=== PATIENT | female | born 1960 | race Two or more races ===

== ENCOUNTER 2018-09-15 13:40 | Outpatient (CLI) | payer MEDICARE, OTHER ==
[~2018-09-15] VITALS: Ht 162.6 cm; Wt 66.7 kg
[2018-09-15] MEDS ORDERED: ZANTAC150 MG ORAL (14:43)
[2018-09-15] MEDS ORDERED: HYDRALAZINE HC100 MG ORAL (14:43)
[2018-09-15] MEDS ORDERED: MONTELUKAST SOD10 MG ORAL (14:43)
[2018-09-15] MEDS ORDERED: SIMVASTATIN10 MG ORAL (14:43)
[2018-09-15] MEDS ORDERED: ACICLOVIR PO (14:43)
[2018-09-15] MEDS ORDERED: NORMODYNE200 MG ORAL (14:43)
[2018-09-15] MEDS ORDERED: PROAIR HFA8.5 GM INH (14:43)
[2018-09-15] MEDS ORDERED: ZYRTEC10 MG ORAL (14:43)
--- NOTE | 2018-09-15 14:47 | GI Initial Consult Note ---
History of Present Illness General Date patient seen: Sep 15, 2018 Time patient seen: 14:47 Referring physician: Yin Reason for Consultation: Hematochezia Present Illness HPI 58-year-old female patient presents today with complaint of hematochezia accompanied with generalized abdominal pain, GERD, diarrhea and abdominal bloating. The patient had EGD performed back in 2015. Had her colonoscopy performed back in 2012, results are unknown at this time. Denies any unintentional weight loss or changes in dietary habits. No signs of abuse or neglect. Patient is not fall risk. Med list reviewed/reconciled: Yes Patient History History Provided By: Patient, Medical Record PM Narrative End-stage renal disease, dialysis Wednesday since 2015 Hypertension Cholesterol GERD Asthma Sleep apnea with use of CPAP Past surgical history Appendectomy Hysterectomy left breast biopsy, negative Pertinent Family History: none Social History: Reports: other - Use of caffeine; Denies: smoking, alcohol use , drug use Review of Systems All Other Systems: negative except mentioned in HPI Physical Exam Blood pressure 150/84 Heart rate 76 95% room air Height 5 feet 4 inches Weight 147 pounds Sp02 EP Interpretation: reviewed, normal General Appearance: well appearing, no apparent distress, alert Head: normocephalic EENT: PERRL/EOMI, normal ENT inspection Neck: supple Respiratory: normal breath sounds, no respiratory distress Cardiovascular: normal rate Gastrointestinal: normal inspection, non tender, soft, normal bowel sounds, non -distended Rectal: deferred Genitourinary: no CVA tenderness Musculoskeletal: normal inspection, back normal Neurologic: normal inspection, alert, oriented x3, responsive Psychiatric: normal inspection, judgement/insight normal, memory normal Skin: normal inspection, normal color, no rash, warm/dry, palpation normal, well hydrated Lymphatic: normal inspection, no adenopathy GI: Plan Problems: (1) Hypertension (2) End stage renal disease (3) GERD (gastroesophageal reflux disease) (4) Asthma (5) Colonoscopy planned (6) Hematochezia (7) Abdominal pain (8) Diarrhea Plan EGD/colonoscopy scheduled September 26, 2018. - CLD & (Nulytely/Suprep/Movi-Prep) prep instructions given and acknowledged by patient. - NPO @ PR day prior procedure explained. Will follow with additional recs post procedure. Seen with Dr. Grover. Thank you for this patient referral. The patient was seen and examined at bedside and all new and available data was reviewed in the patients chart. I agree with the above findings, impression and plan. (Patient seen earlier today. Signature stamp does not reflect patient encounter time.). - MD Betty SahuBanner [facility] HospitalLeoDenzel TAISHA Sep 15, 2018 14:47
[2018-09-15 15:20] VITALS: BP 150/84
== END 2018-09-15 14:10 | disposition home or self-care (01) ==
LOC: PAN 13:40
DX: K92.1 Melena (principal); R10.84 Generalized abdominal pain; K21.9 Gastro-esophageal reflux disease without esophagitis; R19.7 Diarrhea, unspecified; R14.0 Abdominal distension (gaseous); I12.0 Hypertensive chronic kidney disease with stage 5 chronic kidney disease or end stage renal disease; N18.6 End stage renal disease; Z99.2 Dependence on renal dialysis; J45.909 Unspecified asthma, uncomplicated; G47.30 Sleep apnea, unspecified; Z90.710 Acquired absence of both cervix and uterus
CPT/HCPCS: 99202

== ENCOUNTER 2018-09-26 08:12 | Day surgery (SDC) | payer MEDICARE, OTHER ==
[2018-09-26] VITALS (9 sets, daily range): BP systolic 112–156; BP diastolic 68–81
[~2018-09-26] VITALS: Ht 162.6 cm; Wt 64.9 kg
[~2018-09-26 08:12] MED LIST: ACICLOVIR PO; HYDRALAZINE HC100 MG ORAL; MONTELUKAST SOD10 MG ORAL; NORMODYNE200 MG ORAL; PROAIR HFA8.5 GM INH; SIMVASTATIN10 MG ORAL; ZANTAC150 MG ORAL; ZYRTEC10 MG ORAL
--- NOTE | 2018-09-26 09:00 | NUR ---
IV NS WAS STARTED BY STEVE STEPHENS RN. NO S/S OF INFILTRATION. PAM Polanco SERUM.
[2018-09-26] MEDS ORDERED: AMITRIPTYLINE100 MG ORAL (09:03)
[2018-09-26] MEDS ORDERED: FLUTICASONE PRO16 G1 NASAL (09:03)
[2018-09-26] MEDS ORDERED: AVAPRO150 MG ORAL (09:03)
[2018-09-26] MEDS ORDERED: Midazolam 2mg/2ml Inj IVP PRN (10:00)
[2018-09-26] MEDS ORDERED: Atropine Sulfate 0.4mg/ml inj ONE (10:00)
[2018-09-26] MEDS ORDERED: Propofol 200mg/20ml IV ONE (10:00)
[2018-09-26] MEDS ORDERED: Lidocaine 1% MPF 10mg/ml 5ml ONE (10:00)
[2018-09-26] MEDS ORDERED: fentaNYL 100 mcg/2 mL IV PRN (10:00)
[2018-09-26] MEDS ORDERED: DiphenhydrAMINE 50mg/ml Inj IVP PRN (10:00)
[2018-09-26] MEDS ORDERED: Atropine Inj 1mg/10ml Syr IV PRN (10:00)
--- NOTE | 2018-09-26 10:03 | Short Stay Surgery H&P ---
History of Present Illness History of Present Illness Chief Complaint see recent office note HPI Dee Wade is a 58 year old female who was admitted on for Gerd And Abdominal Pain Patient History Allergies: Coded Allergies: HYDRALAZINE (Verified Allergy, Severe, 09/26/18) dificulty breathing PENICILLINS (Verified Allergy, Intermediate, 09/15/18) SWOLLEN NUMBNESS Medication History Scheduled Albuterol Sulfate* (Proair Hfa*), 1 PUFF INH Q6H, (Reported) Amitriptyline HCl (Amitriptyline HCl), 10 MG ORAL BEDTIME, (Reported) Cetirizine Hcl* (Zyrtec*), 10 MG ORAL DAILY, (Reported) Fluticasone Propionate* (Fluticasone Propionate*), 2 SPRAY NASAL NEEDED, ( Reported) Irbesartan* (Avapro*), 150 MG ORAL DAILY, (Reported) Labetalol HCl (Labetalol HCl), 200 MG ORAL EVERY 12 HOURS, (Reported) Montelukast Sodium* (Montelukast Sodium*), 10 MG ORAL DAILY, (Reported) Ranitidine Hcl* (Zantac*), 150 MG ORAL TWICE A DAY, (Reported) Simvastatin (Zocor), 10 MG ORAL BEDTIME, (Reported) [Aciclovir], 400 MG PO BID, (Reported) Discontinued Medications Hydralazine Hcl* (Hydralazine Hcl*), 100 MG ORAL EVERY 8 HOURS, (Reported) Discontinued Reason: Pt had allergic rxn Physical Exam Vital Signs Last Vital Signs Date Time Temp Pulse Resp B/P (MAP) Pulse Ox O2 Delivery O2 Flow Rate FiO2 09/26/18 09:13 Room Air 09/26/18 08:51 98.1 82 20 156/80 95 Labs Laboratory Tests Test 09/26/18 09:00 Potassium Level 4.7 MMOL/L (3.5-5.1) Plan Attestation Are the patient's medical conditions optimized for surgery? Johnny Grover MD Sep 26, 2018 10:03
--- NOTE | 2018-09-26 10:03 | Pre-Procedure Note/Attestation ---
Pre-Procedure Note/Attestation Complete Prior to Procedure Planned Procedure: not applicable Procedure Narrative: esophagogastroduodenoscopy and colonoscopy Indications for Procedure Pre-Operative Diagnosis: screening colon, GERD Attestation I attest that I discussed the nature of the procedure; its benefits; risks and complications; and alternatives (and the risks and benefits of such alternatives ), prior to the procedure, with the patient (or the patient's legal insurance account representative). I attest that, if there was a reasonable possibility of needing a blood transfusion, the patient (or the patient's legal insurance account representative) was given the [facility] standardized written summary, pursuant to the [place] Blood Safety Act ([place] Health and Safety Code # 1645, as amended). I attest that I re-evaluated the patient just prior to the surgery and that there has been no change in the patient's H&P, except as documented below: Johnny Grover MD Sep 26, 2018 10:03
--- NOTE | 2018-09-26 10:34 | Anethesia Preoperative Eval ---
Anesthesia Pre-op PMH/ROS General Date of Evaluation: Sep 26, 2018 Time of Evaluation: 09:15 Anesthesiologist: michele ASA Score: ASA 4 Mallampati Score Class I : Soft palate, uvula, fauces, pillars visible Class II: Soft palate, uvula, fauces visible Class III: Soft palate, base of uvula visible Class IV: Only hard plate visible Mallampati Classification: Class II Surgeon: ede Diagnosis: gerd/ abdominal pain Surgical Procedure: egd/colonoscopy Anesthesia History: none Social History: smoking - nonsmoker Family History: no anesthesia problems Allergies: Coded Allergies: HYDRALAZINE (Verified Allergy, Severe, 09/26/18) dificulty breathing PENICILLINS (Verified Allergy, Intermediate, 09/15/18) SWOLLEN NUMBNESS Medications: see eMAR Patient NPO?: Yes Past Medical History Cardiovascular: Reports: HTN, other - hypercholesterolemia Pulmonary: Reports: asthma, MINGO, other - pneumonia Gastrointestinal/Genitourinary: Reports: GERD, ESRD - last Hematology/Immune: Reports: anemia, other Musculoskeletal/Integumentary: Reports: OA Other: obesity Anesthesia Pre-op Phys. Exam Physician Exam Last Vital Signs Date Time Temp Pulse Resp B/P (MAP) Pulse Ox O2 Delivery O2 Flow Rate FiO2 09/26/18 09:13 Room Air 09/26/18 08:51 98.1 82 20 156/80 95 Constitutional: NAD Neurologic: CN 2-12 intact Cardiovascular: RRR Respiratory: CTA Gastrointestinal: S/NT/ND Airway Exam Mallampati Score: Class II MO: limited Neck: flexible TMD: 2fb ROM: limited Anesthesia Pre-op A/P Labs Chemistry Test 09/26/18 09:00 Potassium Level 4.7 MMOL/L (3.5-5.1) Risk Assessment & Plan Assessment: asa4 Plan: mac Status Change Before Surgery: No Pre-Antibiotics Drug: Scarlett Larsen MD Sep 26, 2018 10:34
--- NOTE | 2018-09-26 10:39 | Endoscopy Procedure Note ---
Endoscopy Procedure Note General Indication for Procedure: screening colon, GERD Procedures Performed: EGD, colonoscopy Operative Findings/Diagnosis: gastritis, 4 colon polyps Specimen: yes Pt Tolerated Procedure Well: Yes Estimated Blood Loss: none Anesthesia Anesthesiologist: robin Anesthesia: MAC Inserted Devices Implant(s) used?: No Quality Quality of Bowel Preparation: Good Did scope reach the cecum?: Yes Was there any complications?: No GI Core Measures 50 yrs or older w/o bx or poly: No 10yrs. F/U not recommended: Yes If not recommended, why?: Above average risk 10 yrs. F/U needed: Yes 18 years or older w/prev. colo: No Johnny Groevr MD Sep 26, 2018 10:39
--- NOTE | 2018-09-26 14:06 | Immediate Post-Op Evaluation ---
Immediate Post-Op Evalulation Immediate Post-Op Evalulation Procedure: egd/colonoscopy w/bx Date of Evaluation: Sep 26, 2018 Time of Evaluation: 09:40 IV Fluids: 500ml 0.9ns Blood Products: none Estimated Blood Loss: negligible Blood Pressure Systolic: 112 Blood Pressure Diastolic: 72 Pulse Rate: 80 Respiratory Rate: 18 O2 Sat by Pulse Oximetry: 100 Temperature (Fahrenheit): 97.1 Pain Score (1-10): 0 Nausea: No Vomiting: No Complications none Patient Status: awake, reacts, patent Hydration Status: adequate Drug: Scarltet Larsen MD Sep 26, 2018 14:06
--- NOTE | 2018-09-26 14:09 | 48 Hour Post Anesthesia Eval ---
Post Anesthesia Evaluation Procedure: egd/colonoscopy w/bx Date of Evaluation: Sep 26, 2018 Time of Evaluation: 10:52 Blood Pressure Systolic: 117 0: 68 Pulse Rate: 81 Respiratory Rate: 18 Temperature (Fahrenheit): 97.1 O2 Sat by Pulse Oximetry: 100 Airway: patent Nausea: No Vomiting: No Pain Intensity: 0 Hydration Status: adequate Cardiopulmonary Status: stable Mental Status/LOC: patient returned to baseline Post-Anesthesia Complications: none Follow-up care needed: N/A Scarlett Mancia MD Sep 26, 2018 14:09
--- NOTE | 2018-09-26 15:15 | Procedure Note ---
DATE OF PROCEDURE: 09/26/2018 SURGEON: Johnny Grover M.D. ANESTHESIOLOGIST: Dr. Machuca. REFERRING PHYSICIAN: Jp Barfield M.D. PROCEDURE: Upper endoscopy with biopsy and colonoscopy with snare polypectomy and biopsy. ANESTHESIA: Per Dr. Machuca. INSTRUMENT: Olympus adult flexible upper endoscope and colonoscope. INDICATION: Screening colonoscopy evaluation and chronic GERD. REASON FOR PROCEDURE: The procedure, risks, benefits, and possible consequences, including hemorrhage, aspiration, perforation and infection, and alternative treatments, were explained to the patient/legal guardian by Dr. Johnny Grover and the patient/legal guardian understood and accepted these risks. DESCRIPTION OF PROCEDURE: After informed consent was obtained and the patient was adequately sedated, Olympus upper scope was advanced from the mouth to the second portion of the duodenum and retroflexion was performed in the stomach. The patient had diffuse gastritis. Random biopsies from antrum and body was obtained to rule out H. pylori infection. Otherwise, the rest of the upper endoscopic examination grossly within normal limit. At this time, the upper endoscope was retrieved. The patient was turned over for colonoscopy. First, rectal exam which was normal. Then, the scope was advanced from rectum into the cecum documented by appendiceal orifice, ileocecal valve, and right upper quadrant palpation. Quality of prep was good. The patient had four polyps in the ascending colon area close to the hepatic flexure area. All these polyps were in the same region. Two of them were removed with a hot snare polypectomy, the other two with the cold biopsy. The largest one was measured roughly about 6 mm, removed with a hot snare polypectomy technique. The rest of the examination was grossly within normal limits. Retroflexion of rectum showed evidence of small nonbleeding internal hemorrhoids. SUMMARY OF FINDINGS: 1. Gastritis, status post biopsy to rule out H. pylori infection. 2. Four colonic polyps removed, see above for details. 3. Internal hemorrhoids. RECOMMENDATIONS: Follow up biopsy results and treat accordingly. We will recommend repeat colonoscopy in three years. I want to thank Dr. Barfield for this kind referral. Johnny Grover M.D. DR: KIRT JOB#: [id number] CC: Jp Barfield M.D.; Fax#: [phone]
== END 2018-09-26 12:00 | disposition home or self-care (01) ==
LOC: GAS 08:12
DX: Z12.11 Encounter for screening for malignant neoplasm of colon (principal); D12.3 Benign neoplasm of transverse colon; K64.8 Other hemorrhoids; K21.9 Gastro-esophageal reflux disease without esophagitis; K29.50 Unspecified chronic gastritis without bleeding; I12.0 Hypertensive chronic kidney disease with stage 5 chronic kidney disease or end stage renal disease; N18.6 End stage renal disease; E78.00 Pure hypercholesterolemia, unspecified; D64.9 Anemia, unspecified; M19.90 Unspecified osteoarthritis, unspecified site; J45.909 Unspecified asthma, uncomplicated; G47.33 Obstructive sleep apnea (adult) (pediatric); Z79.899 Other long term (current) drug therapy; Z88.0 Allergy status to penicillin; Z88.8 Allergy status to other drugs, medicaments and biological substances
CPT/HCPCS: 36415; 43239; 45380; 45385; 84132; 93005; J0461; J2704; 94003; 94150

== ENCOUNTER 2018-10-10 12:55 | Outpatient (CLI) | payer MEDICARE, OTHER ==
[~2018-10-10 12:55] MED LIST changes: +AMITRIPTYLINE100 MG ORAL; +AVAPRO150 MG ORAL; +FLUTICASONE PRO16 G1 NASAL
--- NOTE | 2018-10-10 13:48 | GI Progress Note ---
Assessment/Plan Problems: (1) Constipation ICD Codes: K59.00 - Constipation, unspecified SNOMED: 07276861 (2) Gastritis ICD Codes: K29.70 - Gastritis, unspecified, without bleeding SNOMED: 7316737 (3) Colonic polyp ICD Codes: K63.5 - Polyp of colon SNOMED: 73987820 (4) Asthma ICD Codes: J45.909 - Unspecified asthma, uncomplicated SNOMED: 089033243 (5) Hypertension ICD Codes: I10 - Essential (primary) hypertension SNOMED: 07760171 (6) Abdominal pain ICD Codes: R10.9 - Unspecified abdominal pain SNOMED: 21418991 (7) GERD (gastroesophageal reflux disease) ICD Codes: K21.9 - Gastro-esophageal reflux disease without esophagitis SNOMED: 132918750 (8) Diarrhea ICD Codes: R19.7 - Diarrhea, unspecified SNOMED: 85159551 Status: stable Status Narrative Seen with Dr. Grover. Assessment/Plan SUMMARY OF FINDINGS reviewed with patient: 1. Gastritis, status post biopsy to rule out H. pylori infection. >> Biopsy negative for H. pylori 2. Four colonic polyps removed, see above for details. >> Sessile serrated adenoma 3. Internal hemorrhoids. RECOMMENDATIONS: Rx Anusol HC Rx MiraLAX Return to clinic in 2 months We will recommend repeat colonoscopy in three years. The patient was seen and examined at bedside and all new and available data was reviewed in the patients chart. I agree with the above findings, impression and plan. (Patient seen earlier today. Signature stamp does not reflect patient encounter time.). - Johnny Grover MD Subjective Subjective Complaint of constipation, states that she had 2 bowel movements last week and is currently on no medication Here for EGD and colonoscopy review Objective Temperature is 98.1 Blood pressure 149/84 Pulse is 74 93% room air General Appearance: WD/WN, no apparent distress, alert Cardiovascular: normal rate Respiratory/Chest: normal breath sounds, no respiratory distress Abdominal Exam: normal bowel sounds, non tender, soft Extremities: normal range of motion, non-tender Autumn Hernández NP Oct 10, 2018 13:48
[2018-10-10 14:01] VITALS: BP 149/84
== END 2018-10-10 13:25 | disposition home or self-care (01) ==
LOC: PAN 12:55
DX: K59.00 Constipation, unspecified (principal); K29.70 Gastritis, unspecified, without bleeding; K63.5 Polyp of colon; J45.909 Unspecified asthma, uncomplicated; I10 Essential (primary) hypertension; K21.9 Gastro-esophageal reflux disease without esophagitis; R19.7 Diarrhea, unspecified; K64.8 Other hemorrhoids
CPT/HCPCS: 99212

== ENCOUNTER 2018-12-12 13:02 | Outpatient (CLI) | payer MEDICARE, OTHER ==
--- NOTE | 2018-12-12 14:22 | General Progress Note ---
Assessment/Plan Problem List: (1) Asthma ICD Codes: J45.909 - Unspecified asthma, uncomplicated SNOMED: 771469817 (2) Abdominal pain ICD Codes: R10.9 - Unspecified abdominal pain SNOMED: 21467394 (3) Hypertension ICD Codes: I10 - Essential (primary) hypertension SNOMED: 06423949 (4) GERD (gastroesophageal reflux disease) ICD Codes: K21.9 - Gastro-esophageal reflux disease without esophagitis SNOMED: 558007837 (5) Gastritis ICD Codes: K29.70 - Gastritis, unspecified, without bleeding SNOMED: 3236735 (6) Colonic polyp ICD Codes: K63.5 - Polyp of colon SNOMED: 55010348 (7) Constipation ICD Codes: K59.00 - Constipation, unspecified SNOMED: 37582540 (8) Hematochezia ICD Codes: K92.1 - Melena SNOMED: 422792164 Assessment/Plan cont miralax given 4 polyps will plan repeat colonoscopy in 3 years treat for hemorrhoids RTC 3 months Subjective ROS Limited/Unobtainable: Yes Allergies: Coded Allergies: HYDRALAZINE (Verified Allergy, Severe, 09/26/18) dificulty breathing PENICILLINS (Verified Allergy, Intermediate, 09/15/18) SWOLLEN NUMBNESS Objective General Appearance: alert EENT: normal ENT inspection Neck: supple Cardiovascular: normal rate Respiratory/Chest: decreased breath sounds Abdomen: normal bowel sounds, non tender, soft Extremities: non-tender Johnny Grover MD Dec 12, 2018 14:22
== END 2018-12-12 15:02 | disposition home or self-care (01) ==
LOC: PAN 13:02
DX: J45.909 Unspecified asthma, uncomplicated (principal); R10.9 Unspecified abdominal pain; I10 Essential (primary) hypertension; K21.9 Gastro-esophageal reflux disease without esophagitis; K29.70 Gastritis, unspecified, without bleeding; K63.5 Polyp of colon; K59.00 Constipation, unspecified; K92.1 Melena; Z88.0 Allergy status to penicillin; Z88.8 Allergy status to other drugs, medicaments and biological substances